=== PATIENT | female | born 1975 | race Caucasian/White ===

== ENCOUNTER → 2021-03-08 | Outpatient (CLI) | payer BC, OTHER ==
[~2021-03-08] MED LIST: APIX5TAB3 PO; AZIT250T PO
--- NOTE | 2021-03-08 10:16 | RAD ---
Right lower extremity venous duplex study 03/08/2021 10:14 AM Clinical History: Reason: EDEMA, RT LEG PAIN / Spl. Instructions: / History: Technique: Using a combination of real time ultrasound imaging and color-flow and pulse Doppler imagi ng techniques, including spectral analysis, graded compression and augmentation, duplex evaluation of the deep venous system of the right lower extremity was performed. Multiple images were obtained. Findings: There is no sonographic evidence of deep venous thrombosis involving the visualized deep ve nous structures of the right lower extremity Impression: No evidence of deep venous thrombosis involving the right lower extremity Electronically signed by: Jose Caraballo MD (03/08/2021 10:14 AM) [id number]
--- NOTE | 2021-03-08 10:18 | RAD ---
Ankle-brachial indices 03/08/2021 INDICATION: Claudication. History of smoking. Right brachial pressure: 112 Left brachial pressure: 112 Right posterior tract tibial pressure: 148 Left posterior tibial pressure 148 Right dorsalis pedis pressure 154 Left dorsalis pedis pressure 152 Right JAMIE: 1.4 Left JAMIE: 1.4 IMPRESSION: Elevated ankle brachial indices bilaterally which likely reflects vessel hardening second gabriel to atherosclerotic vascular disease Electronically signed by: Jose Caraballo MD (03/08/2021 10:16 AM) [id number]
== END ==
LOC: US 09:22
PROVIDERS: ATTEND Family Medicine
DX: R09.89 Other specified symptoms and signs involving the circulatory and respiratory systems (principal); M79.661 Pain in right lower leg; R60.0 Localized edema; I73.9 Peripheral vascular disease, unspecified
CPT/HCPCS: 93923; 93971

== ENCOUNTER 2021-03-09 03:06 | Emergency (ER) | payer OTHER ==
[~2021-03-09] VITALS: Ht 157.5 cm; Wt 104.0 kg
--- NOTE | 2021-03-09 03:22 | PHYS DOC ---
General Adult HPI: HPI: ".. I am running a fever.. and now had 2 episodes of diarrhea and vomiting.... Feel like I got the flu or something... I did seen Dr. Echevarria today because I get some leg pain.... Does not really short of breath.. chills ..hurt every where,.,, I did get my Covid vaccination... But he did not get a flu shot yet this year,,," Patient is a 45 year old female who presents with above hx and complaints fever, chills, malaise, arthralgia, myalgia, vomiting, diarrhea, leg pain and dyspnea. Patient has had 2 Covid vaccinations. Has not had a booster as yet. Has not had flu vaccination this season. Patient denies any recent travel outside the [place] area. No specific ill contacts. No history of bad food intake. Does not smoke. No history immunosuppression. Normally follows with Dr. Brooke Echevarria. Review of Systems: Review of Systems: Constitutional: Complains of fever or chills Eyes: Denies change in visual acuity HENT: Complains of nasal congestion and sore throat Respiratory: Complains of cough and shortness of breath Cardiovascular: Denies chest pain or edema GI: Complains of abdominal pain, nausea, vomiting, and diarrhea : Denies dysuria Musculoskeletal: Complains of general arthralgia and myalgia Integument: Denies rash Neurologic: Denies headache, focal weakness or sensory changes Endocrine: Denies polyuria or polydipsia Lymphatic: Denies swollen glands Psychiatric: Denies depression or anxiety Family History: Family History: Noncontributory to presentation Current Medications: Current Meds: See nursing for home meds Allergies: Allergies: No known drug allergies Physical Exam: PE: Constitutional: Moderate acute distress, non-toxic appearance. [] HENT: Normocephalic, atraumatic, bilateral external ears normal, oropharynx moist, mild injection pharynx, no oral exudates, nose: Turbinates and clear rhinorrhea Eyes: PERRLA, EOMI, conjunctiva normal, no discharge. [] Neck: Normal range of motion, no tenderness, supple, no stridor. [] Cardiovascular: Tachycardia heart rate regular rhythm, no murmur [] Lungs & Thorax: Bilateral breath sounds equal apex with scattered wheezes auscultation []Bilateral basilar crackles > Lt. Abdomen: Bowel sounds hyperactive,, soft, no tenderness, no masses, no pulsatile masses. Old surgical scar. Skin: Warm, dry, no erythema, no rash. [] Back: No tenderness, no CVA tenderness. [] Extremities: Generalized tenderness, no cyanosis, no clubbing, ROM intact ankle edema. [] No cording appreciated. Neurologic: Alert and oriented X 3, moves all extremities on request, peers have distal sensory,, no focal deficits noted. [] Psychologic: Affect anxious judgement normal, mood normal. [] EKG: EKG: My interpretation of EKG shows a sinus rhythm at 88 bpm no findings of acute STEMI or contralateral changes. Time of EKG is 355 hours [] Radiology/Procedures: Radiology/Procedures: [][address] [address] IMAGING REPORT Signed PATIENT: ODESSA MARROQUIN ACCOUNT: [id number] : 1975 LOCATION: ER AGE: 45 SEX: F EXAM STATUS: REG ER ORD. PHYSICIAN: CHRISTOFER ULA MD REASON: n/v/fever PROCEDURE: ACUTE ABDOMEN SERIES XR ABDOMEN COMP ACUTE History: Nausea, vomiting, fever. Comparison: CTA chest 03/09/2021. Technique: Frontal chest with upright and supine radiographs of the abdomen and pelvis. Findings: Chest: Left greater than right airspace disease. No pleural effusion or pneumothorax. Bowel gas pattern: Nonobstructive bowel gas pattern Free air: None. Abnormal calcifications: None. Bones: T12-L2 posterior spinal fixation. Other: Bilateral excretory nephrograms. No hydronephrosis. Impression: 1. No acute abdominal findings. 2. Left greater than right airspace disease concerning for multifocal pneumonia. Electronically signed by: Shane Locke MD (03/09/2021 4:40 AM) [facility] DICTATED AND SIGNED BY: SHANE LOCKE MD DATE: 03/09/21 0433 CC: CHRISTOFER LUA MD; KATHRYNBROOKE ~MTH0 [address] [address] IMAGING REPORT Signed PATIENT: ODESSA MARROQUIN ACCOUNT: [id number] : 1975 LOCATION: ER AGE: 45 SEX: F EXAM STATUS: REG ER ORD. PHYSICIAN: CHRISTOFER LUA MD REASON: dyspnea, fever, dyspnea , ?? COVID Omni 350 100cc PROCEDURE: CT ANGIOGRAPHY CHEST CTA CHEST History: Dyspnea, fever, question Covid. Concern for PE. Comparison: None. Technique: CTA of the pulmonary arteries with intravenous contrast. 3-D postprocessing was performed. Findings: Pulmonary arteries: No pulmonary embolism. Aorta and great vessels: No aneurysm or dissection of the aortic arch or thoracic aorta. Thyroid: No significant abnormalities. Mediastinum and cooper: No mediastinal masses or adenopathy is seen. Esophagus: Dilated distal esophagus with moderate sliding hiatal hernia, partially paraesophageal. Heart: The heart is normal in size. There is no pericardial effusion. Airways, Lungs, Pleura: The airways are patent. There are extensive left, mild right panlobular nodular airspace opacities. No pleural effusion or pneumothorax. Upper abdomen: The spleen is enlarged measuring 13.5 cm AP. Osseous structures and soft tissues: Posterior fixation of T12 and the lumbar spine. Adjacent segment disc disease at T11-T12. Impression: 1. No pulmonary embolism, aortic aneurysm or aortic dissection. 2. Panlobular extensive left, mild right airspace disease compatible with multifocal infection. Correlate for Covid pneumonia. 3. Moderate sliding hiatal hernia with paraesophageal component. ------ Exposure: One or more of the following individualized dose reduction techniques were utilized for this examination: 1. Automated exposure control 2. Adjustment of the mA and/or kV according to patient size 3. Use of iterative reconstruction technique. Electronically signed by: Shane Locke MD (03/09/2021 4:33 AM) [facility] DICTATED AND SIGNED BY: SHANE LOCKE MD DATE: 03/09/21 042 CC: CHRISTOFER LUA MD; BROOKE ECHEVARRIA ~MTH0 0 Heart Score: C/O Chest Pain: N/A HEART Score for Chest Pain: HEART Score for Chest Pain Response (Comments) Value History Slighlty/Non-Suspicious 0 ECG Normal 0 Age < 45 0 Risk Factors 1 or 2 Risk Factors 1 Troponin < Normal Limit 0 Total 1 Risk Factors: Risk Factors: DM, Current or recent (<one month) smoker, HTN, HLP, family history of CAD, obesity. Risk Scores: Score 0 - 3: 2.5% MACE over next 6 weeks - Discharge Home Score 4 - 6: 20.3% MACE over next 6 weeks - Admit for Clinical Observation Score 7 - 10: 72.7% MACE over next 6 weeks - Early Invasive Strategies Course & Med Decision Making: Course & Med Decision Making Pertinent Labs and Imaging studies reviewed. (See chart for details) Patient taking Zithromax 250 mg a day. Patient use MDI 2 puffs 4 times a day. Take Eliquis 10 mg a twice a day for 7 days. The patient follow-up primary care. Patient practice Covid isolation in spite of a negative Covid rapid test. Follow-up with primary. Follow up pending PCR COVID test. Impression: 1. Fever 2. Nausea vomiting and diarrhea 3. Viral pneumonia 4. Mild anemia hemoglobin 11.2 5. Mild elevation CK 329 [] Dragon Disclaimer: Dragon Disclaimer: This electronic medical record was generated, in whole or in part, using a voice recognition dictation system. Departure Departure: Referrals: BROOKE ECHEVARRIA (PCP) Scripts Azithromycin (ZITHROMAX) 250 Mg Tablet 250 MG PO DAILY for ANTI-BIOTIC for 5 Days, #5 TAB 0 Refills Prov: CHRISTOFER LUA MD 03/09/21 Apixaban (ELIQUIS) 5 Mg Tablet 5 MG PO BID for dvt protection, Tx for 7 Days, #14 TAB Prov: CHRISTOFER LUA MD 03/09/21 Tushar Disclaimer This chart was dictated in whole or in part using Voice Recognition software in a busy, high-work load, and often noisy Emergency Department environment. It may contain unintended and wholly unrecognized errors or omissions. Dragon Disclaimer This chart was dictated in whole or in part using Voice Recognition software in a busy, high-work load, and often noisy Emergency Department environment. It may contain unintended and wholly unrecognized errors or omissions. CHRISTOFER LUA MD Mar 09, 2021 03:22
[2021-03-09] MEDS ORDERED: IV RINGERS SOLUTION,LACTATED 1,000 ML IV SCH (03:30)
[2021-03-09] MEDS ORDERED: IBUPROFEN 600 MG TABLET. PO ONE (03:30)
[2021-03-09] MEDS ORDERED: ALBUTEROL SULFATE 8GM INHALER. INH ONE (03:30)
[2021-03-09] MEDS ORDERED: ACETAMINOPHEN 500 MG TABLET PO ONE (03:30)
[2021-03-09] MEDS ORDERED: ONDANSETRON PF 4 MG/2 ML VIAL. IVP ONE (03:30)
[2021-03-09] MEDS ORDERED: CONTRAST GIVEN. MC PRN (03:45)
[2021-03-09] MEDS ORDERED: IOHEXOL 350 MG/ML 100 ML VIAL. IV ONE (03:45)
--- NOTE | 2021-03-09 04:10 | EKG ---
[address] [address] Test Date: 2021-03-09 Test Time: 03:55:31 Pat Name: ODESSA MARROQUIN Department: Room: Gender: F Recruiter: : 1975 Requested By: CHRISTOFER LUA Order Number: [id number] Reading MD: Lio Calhoun Measurements Intervals [place] Rate: 88 P: 24 NH: 128 QRS: 48 QRSD: 82 T: 15 QT: 328 QTc: 400 Interpretive Statements SINUS RHYTHM Electronically Signed On 03-13-2021 10:37:30 [employer] by Lio Calhoun
--- NOTE | 2021-03-09 04:36 | RAD ---
CTA CHEST History: Dyspnea, fever, question Covid. Concern for PE. Comparison: None. Technique: CTA of the pulmonary arteries with intravenous contrast. 3-D postprocessing was performed. Findings: Pulmonary arteries: No pulmonary embolism. Aorta and great vessels: No aneurysm or dissection of the aortic arch or thoracic aorta. Thyroid: No significant abnormalities. Mediastinum and cooper: No mediastinal masses or adenopathy is seen. Esophagus: Dilated distal esophagus with moderate sliding hiatal hernia, partially paraesophageal. Heart: The heart is normal in size. There is no pericardial effusion. Airways, Lungs, Pleura: The airways are patent. There are extensive left, mild right panlobular nodul ar airspace opacities. No pleural effusion or pneumothorax. Upper abdomen: The spleen is enlarged measuring 13.5 cm AP. Osseous structures and soft tissues: Posterior fixation of T12 and the lumbar spine. Adjacent segment disc disease at T11-T12. Impression: 1. No pulmonary embolism, aortic aneurysm or aortic dissection. 2. Panlobular extensive left, mild right airspace disease compatible with multifocal infection. Symone elate for Covid pneumonia. 3. Moderate sliding hiatal hernia with paraesophageal component. ------ Exposure: One or more of the following individualized dose reduction techniques were utilized for thi s examination: 1. Automated exposure control 2. Adjustment of the mA and/or kV according to patient size 3. Use of iterative reconstruction technique. Electronically signed by: Shane Woodson MD (03/09/2021 4:33 AM) [facility]
[2021-03-09 04:39] LABS: BASO % 0 % (0-3); EOS % 1 % (0-3); HEMATOCRIT 35.1 % (36.0-47.0); HEMOGLOBIN 11.2 g/dL (12.0-15.5); LYMPH # 0.9 x10^3/uL (1.0-4.8); LYMPH % 14 % (24-48); MEAN CORPUSCULAR HEMOGLOBIN 28 pg (25-35); MEAN CORPUSCULAR HGB CONC 32 g/dL (31-37); MEAN CORPUSCULAR VOLUME 86 fL (79-100); MONO # 0.3 x10^3/uL (0.0-1.1); MONO % 5 % (0-9); NEUT % 80 % (31-73); PLATELET COUNT 279 x10^3/uL (140-400); RED BLOOD COUNT 4.07 x10^6/uL (3.50-5.40); RED CELL DISTRIBUTION WIDTH 15.2 % (11.5-14.5); WHITE BLOOD COUNT 6.3 x10^3/uL (4.0-11.0)
--- NOTE | 2021-03-09 04:43 | RAD ---
XR ABDOMEN COMP ACUTE History: Nausea, vomiting, fever. Comparison: CTA chest 03/09/2021. Technique: Frontal chest with upright and supine radiographs of the abdomen and pelvis. Findings: Chest: Left greater than right airspace disease. No pleural effusion or pneumothorax. Bowel gas pattern: Nonobstructive bowel gas pattern Free air: None. Abnormal calcifications: None. Bones: T12-L2 posterior spinal fixation. Other: Bilateral excretory nephrograms. No hydronephrosis. Impression: 1. No acute abdominal findings. 2. Left greater than right airspace disease concerning for multifocal pneumonia. Electronically signed by: Shane Woodson MD (03/09/2021 4:40 AM) [facility]
[2021-03-09 04:48] LABS: CALCIUM 8.3 mg/dL (8.5-10.1); CREATININE 0.8 mg/dL (0.6-1.0); GFR 77.6; POTASSIUM 4.5 mmol/L (3.5-5.1)
[2021-03-09 04:52] VITALS: BP 124/59
[2021-03-09] MEDS ORDERED: AZITHROMYCIN 250 MG TABLET. PO ONE (05:00)
[2021-03-09 05:01] LABS: ALBUMIN 3.4 g/dL (3.4-5.0); DIRECT BILIRUBIN 0.1 mg/dL (0.0-0.2); MAGNESIUM 1.9 mg/dL (1.8-2.4); TOTAL BILIRUBIN 0.2 mg/dL (0.2-1.0); TOTAL PROTEIN 6.4 g/dL (6.4-8.2)
[2021-03-09] MEDS ORDERED: APIX5TAB3 PO (05:07)
[2021-03-09] MEDS ORDERED: AZIT250T PO (05:07)
[2021-03-09] MEDS ORDERED: IV NORMAL SALINE 50ML 50 ML ONE (05:14)
[2021-03-09] MEDS ORDERED: cefTRIAXone SODIUM 1 GM VIAL ONE (05:14)
[2021-03-09] MEDS ORDERED: APIXABAN 5 MG TABLET. ONE (05:15)
[2021-03-09 05:25] LABS: INFLUENZA A PATIENT NEGATIVE (NEGATIVE); INFLUENZA B PATIENT NEGATIVE (NEGATIVE)
[2021-03-09] MEDS ORDERED: APIXABAN 5 MG TABLET. PO SCH (09:00)
== END 2021-03-09 05:35 | disposition home or self-care (01) ==
LOC: ER 03:06
DX: J12.9 Viral pneumonia, unspecified (principal); D64.9 Anemia, unspecified; R74.8 Abnormal levels of other serum enzymes; R11.2 Nausea with vomiting, unspecified; Z20.822 Contact with and (suspected) exposure to COVID-19
CPT/HCPCS: 71275; 74022; 80048; 80076; 82550; 83690; 83735; 83880; 84443; 84484; 85025; 85379; 85610; 85730; 87070; 87426; 87804; 87880; 93005; 94640; 96361; 96374; 96375; 99285; C9803; J0696; J2405; J7120; Q9967; U0003; 94664